=== PATIENT | female | born 1955 | race Caucasian/White ===

== ENCOUNTER 2018-06-18 12:10 | Emergency (ER) | payer OTHER, MEDICAID ==
[~2018-06-18] VITALS: Ht 167.6 cm; Wt 65.0 kg
[2018-06-18] MEDS ORDERED: HYDROCODONE/ACETAMINOPHEN 5/325MG TABLET PO ONE (16:30)
[2018-06-18] MEDS ORDERED: IBUPROFEN 600MG TABLET PO ONE (17:00)
[2018-06-18 17:21] VITALS: BP 130/85
== END 2018-06-18 17:22 | disposition home or self-care (01) ==
LOC: ER 13:45
DX: M62.838 Other muscle spasm (principal); M25.511 Pain in right shoulder; F17.200 Nicotine dependence, unspecified, uncomplicated; Z98.890 Other specified postprocedural states; Z98.51 Tubal ligation status
CPT/HCPCS: 99283